=== PATIENT | male | born 1960 | race Caucasian/White ===

== ENCOUNTER 2021-12-13 09:23 | Outpatient (CLI) | payer BC, SELFPAY ==
--- NOTE | ~2021-12-13 | XR_ITS ---
XR knee RT min 4V 12/13/2021 09:56 Indication: Right knee pain and swelling Procedure: 5 views right knee Comparison: 12/18/2017 Findings: No acute fracture, subluxation or dislocation. No significant joint effusion. No joint spac e narrowing. There are small marginal osteophytes consistent with osteoarthritis. No foreign bodies. Impression: 1: Mild osteoarthritis of the right knee. Reviewed, dictated and finalized at location A. YER HAND Impression: 1: Mild osteoarthritis of the right knee.
== END 2021-12-13 09:24 | disposition home or self-care (01) ==
LOC: CHSIMG 09:26
PROVIDERS: PCP Family Medicine; Visit Provider Orthopaedic Surgery
DX: M25.561 Pain in right knee (principal)
CPT/HCPCS: 73564